=== PATIENT | female | born 1955 | race Caucasian/White ===

== ENCOUNTER → 2017-12-05 | Outpatient (CLI) | payer MEDICARE, OTHER | END | disposition home or self-care (01) | LOC: LAB 13:16 | PROVIDERS: ATTEND Internal Medicine Gastroenterology | DX: R19.7 Diarrhea, unspecified (principal) | CPT/HCPCS: 85048; 87045; 87493; 87899 ==

== ENCOUNTER → 2017-12-24 | Outpatient (CLI) | payer MEDICARE, OTHER | END | disposition home or self-care (01) | LOC: LAB 09:47 | PROVIDERS: ATTEND Internal Medicine Gastroenterology | DX: R10.9 Unspecified abdominal pain (principal) | CPT/HCPCS: 36415; 82565; 84520 ==

== ENCOUNTER 2018-04-23 06:08 | Day surgery (SDC) | payer MEDICARE, OTHER ==
[~2018-04-23] VITALS: Ht 172.7 cm; Wt 84.8 kg
[~2018-04-23 06:08] MED LIST: ALBUAER3 IN; ALEN35TA18 PO; CALCTAB83 PO; FLUT250M2 INH; FOLI1TAB6 PO; FURO40TA4 PO; HYDR-3682 PO; LEVO25TA6 PO; METO25TA62 PO; MONT10TA34 PO; OXCA600T3 PO; PEMB1INJ IV; POTA20TA53 PO; SIMV-13 PO; TIOT17SP IN; WARF5TAB8 PO
[2018-04-23] MEDS ORDERED: BUPIVACAINE 0.25% INJ 50ML VIAL ONE (07:12)
[2018-04-23] MEDS ORDERED: LIDOCAINE 1% HCL (LOCAL ANESTH.) INJ 20ML MDV ONE (07:12)
[2018-04-23] MEDS ORDERED: ceFAZolin 1GM/50ML 50 ML IV ONE (07:15)
[2018-04-23] MEDS ORDERED: TRIAMCINOLONE 40MG/ML 1ML VIAL ONE (07:20)
[2018-04-23] MEDS ORDERED: fentaNYL CITRATE 100 MCG/2 ML VL ONE (07:27)
[2018-04-23] MEDS ORDERED: MIDAZOLAM HCL 1MG/1ML-2 ML VIAL ONE (07:27)
[2018-04-23] MEDS ORDERED: MEPERIDINE HCL (50 MG/ML) 1 ML VIAL ONE (07:28)
[2018-04-23 07:41] LABS: INR 1.11 (0.9-1.15); Partial Thromboplastin Time 33.5 sec (23.78-33.04); Prothrombin Time 11.8 sec (9.27-12.13)
[2018-04-23] MEDS ORDERED: PROPOFOL 10 MG/ML 20 ML IV ONE (07:47)
[2018-04-23] MEDS ORDERED: DEXAMETHASONE SOD PHOS 10MG/1ML VIAL INJ ONE (07:47)
[2018-04-23] MEDS ORDERED: PHENYLEPHRINE HCL 10 MG/ML VL ONE (08:01)
[2018-04-23] MEDS ORDERED: KETOROLAC TROMETH 30 MG/ML 1ML VIAL ONE (08:19)
[2018-04-23] MEDS ORDERED: ePHEDrine SULFATE 50 MG/ML AMP IV PRN (08:45)
[2018-04-23] MEDS ORDERED: LABETALOL HCL 5 MG/ML 4ML SYRINGE IV PRN (08:45)
[2018-04-23] MEDS ORDERED: MORPHINE SULF INJ 2 MG/ML SYRINGE 1ML IV PRN (08:45)
[2018-04-23] MEDS ORDERED: HYDROmorphone HCL 2 MG/ML VL IV PRN (08:45)
[2018-04-23] MEDS ORDERED: MIDAZOLAM HCL 1MG/1ML-2 ML VIAL IV PRN (08:45)
[2018-04-23] MEDS ORDERED: ONDANSETRON HCL 4 MG/2 ML VIAL IV ONE (08:45)
[2018-04-23] MEDS ORDERED: KETOROLAC TROMETH 30 MG/ML 1ML VIAL IV ONE (08:45)
[2018-04-23 09:01] VITALS: BP 125/77
[2018-04-23] MEDS ORDERED: MORPHINE SULF INJ 2 MG/ML SYRINGE 1ML IV ONE (10:00)
== END 2018-04-23 09:18 | disposition home or self-care (01) ==
LOC: SUR 06:08
PROVIDERS: ATTEND Podiatrist Foot & Ankle Surgery
DX: D16.31 Benign neoplasm of short bones of right lower limb (principal); Z83.3 Family history of diabetes mellitus; M20.41 Other hammer toe(s) (acquired), right foot; M24.574 Contracture, right foot; D64.9 Anemia, unspecified; J98.11 Atelectasis; I10 Essential (primary) hypertension; K21.9 Gastro-esophageal reflux disease without esophagitis; J44.1 Chronic obstructive pulmonary disease with (acute) exacerbation; E78.5 Hyperlipidemia, unspecified; M54.16 Radiculopathy, lumbar region; M85.80 Other specified disorders of bone density and structure, unspecified site; M81.0 Age-related osteoporosis without current pathological fracture; I26.99 Other pulmonary embolism without acute cor pulmonale; I82.811 Embolism and thrombosis of superficial veins of right lower extremity; E66.9 Obesity, unspecified; F10.99 Alcohol use, unspecified with unspecified alcohol-induced disorder; I25.10 Atherosclerotic heart disease of native coronary artery without angina pectoris; E03.9 Hypothyroidism, unspecified; Z85.118 Personal history of other malignant neoplasm of bronchus and lung; Z86.010 Personal history of colon polyps; Z87.891 Personal history of nicotine dependence; Z85.3 Personal history of malignant neoplasm of breast; Z90.12 Acquired absence of left breast and nipple; Z90.710 Acquired absence of both cervix and uterus; Z82.49 Family history of ischemic heart disease and other diseases of the circulatory system; Z79.01 Long term (current) use of anticoagulants; Z98.890 Other specified postprocedural states; Z81.2 Family history of tobacco abuse and dependence
CPT/HCPCS: 28270; 28285; 36415; 85610; 85730; 88304; 88311; J0690; J1100; J1642; J1885; J2001; J2175; J2250; J2370; J2704; J3010; J3301; J3490

== ENCOUNTER 2019-06-23 09:06 | Day surgery (SDC) | payer MEDICARE, OTHER ==
[2019-06-20 10:54] LABS: Basophils # (auto) 0.1 uL; Basophils % (auto) 1.2 % (0.0-2.0); Eosinophils # (auto) 0.4 uL; Eosinophils % (auto) 6.5 % (0.0-7.0); Hematocrit 43.3 % (36.0-46.0); Hemoglobin 14.2 g/dL (12.2-16.2); Lymphocytes # (auto) 1.4 uL; Lymphocytes % (auto) 21.5 % (10.0-50.0); Mean Corpuscular Hemoglobin 28.6 pg (28.0-32.0); Mean Corpuscular Hgb Conc. 32.7 g/dL (32.0-36.0); Mean Corpuscular Volume 87.4 fL (80.0-100.0); Monocytes # (auto) 0.6 uL; Monocytes % (auto) 8.8 % (0.0-12.0); Platelet Count (auto) 238 10^3/uL (140-450); Red Blood Cells 4.95 10^6/uL (4.0-5.20); Red Cell Distribution Width 16.8 % (11.8-14.3); White Blood Cell 6.4 10^3/uL (4.4-10.8)
[2019-06-20 11:12] LABS: INR 0.93 (0.9-1.15); Partial Thromboplastin Time 27.2 sec (23.64-32.05)
[2019-06-20 11:19] LABS: Albumin 3.3 g/dL (3.4-5.0); Calcium 9.7 mg/dL (8.5-10.1); Potassium 3.6 mmol/L (3.5-5.1)
[2019-06-20 11:23] LABS: BUN/Creatinine Ratio 16.9; Bilirubin, Total 0.5 mg/dL (0.2-1.0); Total Protein 8.6 g/dL (6.4-8.2)
[2019-06-20 11:32] LABS: Urine Bacteria NONE SEEN /hpf (None Seen); Urine Blood Negative /uL (Negative); Urine Mucus FEW (None Seen); Urine WBC <1 /hpf (0 - 5)
[~2019-06-23] VITALS: Ht 172.7 cm; Wt 84.4 kg
[~2019-06-23 09:06] MED LIST changes: -ALBUAER3 IN; +BUDE0.253 IN; -MONT10TA34 PO; -OXCA600T3 PO; -PEMB1INJ IV; +POTA-220 PO; -POTA20TA53 PO; -WARF5TAB8 PO
[2019-06-23] MEDS ORDERED: KETOROLAC TROMETH 30 MG/ML 1ML VIAL IV ONE (10:15)
[2019-06-23] MEDS ORDERED: ONDANSETRON HCL 4 MG/2 ML VIAL IV PRN (10:15)
[2019-06-23] MEDS ORDERED: HYDROmorphone HCL 2 MG/ML VL IV PRN (10:15)
[2019-06-23] MEDS ORDERED: LABETALOL HCL 5 MG/ML 4ML SYRINGE IV PRN (10:15)
[2019-06-23] MEDS ORDERED: MORPHINE SULFATE 4 MG/ML SYR/VIAL IV PRN (10:15)
[2019-06-23] MEDS ORDERED: ePHEDrine SULFATE 50 MG/ML AMP IV PRN (10:15)
[2019-06-23] MEDS ORDERED: MIDAZOLAM HCL 1MG/1ML-2 ML VIAL IV PRN (10:15)
[2019-06-23] MEDS ORDERED: fentaNYL CITRATE 100 MCG/2 ML VL ONE (10:17)
[2019-06-23] MEDS ORDERED: MIDAZOLAM HCL 1MG/1ML-2 ML VIAL ONE (10:17)
[2019-06-23] MEDS ORDERED: DexAMETHasone SOD PHOS 10MG/1ML VIAL INJ ONE (10:19)
[2019-06-23] MEDS ORDERED: PROPOFOL 10 MG/ML 20 ML IV ONE (10:19)
[2019-06-23 11:07] VITALS: BP 122/76
== END 2019-06-23 11:22 | disposition home or self-care (01) ==
LOC: GI 09:06
PROVIDERS: ATTEND Internal Medicine Gastroenterology
DX: K21.9 Gastro-esophageal reflux disease without esophagitis (principal); K44.9 Diaphragmatic hernia without obstruction or gangrene; J44.9 Chronic obstructive pulmonary disease, unspecified; I11.0 Hypertensive heart disease with heart failure; I50.9 Heart failure, unspecified; E07.9 Disorder of thyroid, unspecified; D64.9 Anemia, unspecified; Z85.118 Personal history of other malignant neoplasm of bronchus and lung; Z86.010 Personal history of colon polyps; Z90.710 Acquired absence of both cervix and uterus; Z98.890 Other specified postprocedural states; Z79.899 Other long term (current) drug therapy; Z87.891 Personal history of nicotine dependence
CPT/HCPCS: 36415; 43235; 80053; 81001; 85025; 85610; 85730; 93005; J1100; J1642; J2250; J2405; J2704; J3010; J7030